=== PATIENT | female | born 1955 | race Caucasian/White ===

== ENCOUNTER 2016-09-08 10:05 | Emergency (ER) | payer OTHER ==
[2016-09-08 10:46] LABS: BASOPHIL % 0.3 % (0-2); PLATELET COUNT 262 x10^3mcL (130-400)
[2016-09-08 10:49] LABS: RED CELL DISTRIBUTION WIDTH 15.9 % (11.5-14.5)
[2016-09-08 10:52] LABS: rbc morphology (normal/abnorm) ABNORMAL (NORMAL)
[2016-09-08 10:54] LABS: CALCIUM 8.6 mg/dL (8.5-10.1); CARBON DIOXIDE 29.2 mmol/L (21-32); CHLORIDE SERUM 102 mmol/L (98-107); CREATININE SERUM 0.8 mg/dL (0.6-1.0); GFR1 > 60 mL/min; GLUCOSE SERUM 260 mg/dL (74-106); POTASSIUM SERUM 4.5 mmol/L (3.5-5.1); SODIUM SERUM 139 mmol/L (136-145)
[2016-09-08 10:59] LABS: ALBUMIN 3.4 g/dL (3.4-5.0); ALKALINE PHOSPHATASE 83 U/L (46-116); ALT/SGPT 34 U/L (14-59); AST/SGOT 21 U/L (15-37); BILIRUBIN TOTAL 0.44 mg/dL (0.20-1.00); TOTAL PROTEIN, SERUM 7.3 g/dL (6.4-8.2)
[2016-09-08 11:04] LABS: CHOLESTEROL 207 mg/dL (<200)
[2016-09-08 11:46] VITALS: BP 140/89
== END 2016-09-08 12:08 | disposition home or self-care (01) ==
LOC: ED 10:05
PROVIDERS: Specialist
DX: G51.0 Bell's palsy (principal); E11.9 Type 2 diabetes mellitus without complications; M19.90 Unspecified osteoarthritis, unspecified site
CPT/HCPCS: 36415; 82962; 83880; G0480; J7512; Q0092